=== PATIENT | female | born 1955 | race Two or more races ===

== ENCOUNTER 2018-11-02 10:38 | Outpatient (CLI) | payer OTHER | END 2018-11-02 10:40 | disposition home or self-care (01) | LOC: SONOGRAMA 10:38 | DX: E04.1 Nontoxic single thyroid nodule (principal) ==

== ENCOUNTER 2021-08-31 10:23 | Outpatient (CLI) | payer OTHER | END 2021-08-31 10:25 | disposition home or self-care (01) | LOC: SONOGRAMA 10:23 | PROVIDERS: ATTEND Pathology Anatomic Pathology & Clinical Pathology | DX: E04.1 Nontoxic single thyroid nodule (principal) ==